=== PATIENT | male | born 1930 ===

== ENCOUNTER 2020-01-03 14:14 | Inpatient (IN) | payer MEDICARE ==
[~2020-01-03] VITALS: Ht 172.7 cm; Wt 56.1 kg
[2020-01-03 14:58] LABS: BASOPHILS ABSOLUTE AUTO 0.02 K/mm3 (0.00-0.23); BASOPHILS PERCENT AUTO 0 % (0-2); EOSINOPHILS ABSOLUTE AUTO 0.01 K/mm3 (0.00-0.68); EOSINOPHILS PERCENT AUTO 0 % (0-6); Hematocrit 38.5 % (37.0-53.0); Hemoglobin 12.5 g/dL (13.5-17.5); IMMATURE GRAN ABSOLUTE AUTO 0.04 K/mm3 (0.00-0.10); IMMATURE GRAN PERCENT AUTO 1 % (0-1); LYMPHOCYTES ABSOLUTE AUTO 0.61 K/mm3 (0.84-5.20); LYMPHOCYTES PERCENT AUTO 8 % (21-46); MONOCYTES PERCENT AUTO 5 % (4-13); Mean Corpuscular HGB 27.2 pg (26.0-34.0); Mean Corpuscular HGB Conc 32.5 g/dL (31.5-36.5); Mean Corpuscular Volume 84 fL (80-100); Mean Platelet Volume 8.5 fL (9.1-12.4); NEUTROPHILS ABSOLUTE AUTO 6.81 K/mm3 (1.96-9.15); NEUTROPHILS PERCENT AUTO 86 % (41-73); Platelet Count 315 K/mm3 (150-400); RDW Coefficient Variation 13.5 % (11.7-14.2); RDW Standard Deviation 41.1 fL (35.1-46.3); White Blood Cell Count 7.89 K/mm3 (4.00-11.30)
[2020-01-03 15:27] LABS: Alanine Aminotransfer (ALT/SGP 20 U/L (12-78); Albumin, Blood 3.4 g/dL (3.4-5.0); Albumin/Globulin Ratio 0.8 (0.8-1.8); Alk Phos 108 U/L (50-136); Anion Gap 7 mmol/L (6-16); Aspartate Aminotrans (AST/SGOT 38 U/L (12-37); Bilirubin, Total 0.5 mg/dL (0.1-1.0); Blood Urea Nitrogen 16 mg/dL (8-24); Bun/Creatinine Ratio 28.4 (12.0-20.0); CO2, Blood 32 mmol/L (21-32); Calcium, Blood 8.4 mg/dL (8.5-10.1); Chloride, Blood 83 mmol/L (98-108); Creatinine, Blood 0.56 mg/dL (0.60-1.20); Glomerular Filtration Rate >60 (60-); Glucose, Blood 154 mg/dL (70-99); Potassium, Blood 3.7 mmol/L (3.5-5.5); Sodium, Blood 122 mmol/L (136-145); Total Protein, Blood 7.4 g/dL (6.4-8.2); Troponin I <0.015 ng/mL (0.000-0.040)
[2020-01-03] MEDS ORDERED: FINA5 PO (16:49)
[2020-01-03] MEDS ORDERED: LOSARTAN POTAS100 M1 PO (16:49)
[2020-01-03] MEDS ORDERED: OMEP20ER PO (16:49)
[2020-01-03] MEDS ORDERED: B-121000 MC2 PO (16:50)
[2020-01-03] MEDS ORDERED: Vitamin D2000 UNIT PO (16:51)
[2020-01-03] MEDS ORDERED: FAMO20 PO (16:51)
--- NOTE | 2020-01-03 19:51 | NUR ---
ADMISSION: PATIENT IS RECIEVED FROM ER VIA STRETCHER. NO C/O PAIN OR DISCOMFORT, WOULD LIKE SOME FOOD. VS ARE STABEL. PATIENT IS ORIENTED TO ROOM AND CALL NEWBY. ORIENTED TO ROOM AND CALL NEWBY. PATIENT IS A&0X4 BUT BED ALARM IS ON FOR SAFETY DUE TO RECENT FALLS AT HOME.
--- NOTE | 2020-01-04 04:51 | NUR ---
SHIFT SUMMARY: PATIENT IS A&OX3, VERY IGIUGIG AND REPORTS BATTERIES ARE LOW ON HEARING AIDES. PATIENT DOES NOT USE CALL NEWBY FOR ASSISTANCE OOB, BED ALARM IS ON FOR SAFETY. PATIENT IS WEAK AND NEEDS ASSISTANCE OF 1 TO THE BSC. NO RESPIRAOTORY DISTRESS OR SOB OBSERVED, MAINTAINS SATS IN HIGH 90'S ON RA.
[2020-01-04 04:54] LABS: BASOPHILS ABSOLUTE AUTO 0.01 K/mm3 (0.00-0.23); BASOPHILS PERCENT AUTO 0 % (0-2); EOSINOPHILS ABSOLUTE AUTO 0.04 K/mm3 (0.00-0.68); EOSINOPHILS PERCENT AUTO 1 % (0-6); Hemoglobin 10.7 g/dL (13.5-17.5); IMMATURE GRAN ABSOLUTE AUTO 0.03 K/mm3 (0.00-0.10); IMMATURE GRAN PERCENT AUTO 1 % (0-1); LYMPHOCYTES ABSOLUTE AUTO 0.78 K/mm3 (0.84-5.20); LYMPHOCYTES PERCENT AUTO 17 % (21-46); MONOCYTES ABSOLUTE AUTO 0.42 K/mm3 (0.16-1.47); MONOCYTES PERCENT AUTO 9 % (4-13); Mean Corpuscular HGB 26.9 pg (26.0-34.0); Mean Corpuscular HGB Conc 32.4 g/dL (31.5-36.5); Mean Corpuscular Volume 83 fL (80-100); Mean Platelet Volume 8.5 fL (9.1-12.4); NEUTROPHILS ABSOLUTE AUTO 3.36 K/mm3 (1.96-9.15); NEUTROPHILS PERCENT AUTO 72 % (41-73); Platelet Count 259 K/mm3 (150-400); RDW Coefficient Variation 13.2 % (11.7-14.2); RDW Standard Deviation 39.8 fL (35.1-46.3); Red Blood Cell Count 3.98 M/mm3 (4.30-5.90); White Blood Cell Count 4.64 K/mm3 (4.00-11.30)
[2020-01-04 05:21] LABS: Alanine Aminotransfer (ALT/SGP 17 U/L (12-78); Albumin, Blood 2.8 g/dL (3.4-5.0); Albumin/Globulin Ratio 0.9 (0.8-1.8); Alk Phos 85 U/L (50-136); Anion Gap 6 mmol/L (6-16); Aspartate Aminotrans (AST/SGOT 29 U/L (12-37); Bilirubin, Total 0.5 mg/dL (0.1-1.0); Blood Urea Nitrogen 12 mg/dL (8-24); Bun/Creatinine Ratio 22.4 (12.0-20.0); CO2, Blood 30 mmol/L (21-32); Calcium, Blood 8.1 mg/dL (8.5-10.1); Chloride, Blood 89 mmol/L (98-108); Creatinine, Blood 0.54 mg/dL (0.60-1.20); Globulin, Blood 3.2 g/dL (2.2-4.0); Glomerular Filtration Rate >60 (60-); Glucose, Blood 89 mg/dL (70-99); Potassium, Blood 3.7 mmol/L (3.5-5.5); Sodium, Blood 125 mmol/L (136-145)
--- NOTE | 2020-01-04 07:00 | NUR ---
ASSUMED CARE: PT RESTING QUIETLY IN BED AT THIS TIME. NO ACUTE NEEDS OR CONCERNS AT THIS TIME.
--- NOTE | 2020-01-04 17:48 | NUR ---
SHIFT SUMMARY: PT RECIEVING PO CONTRAST FOR ABDOMINAL CT. 1 ASSIST FOR TRANSPORT, FREQUENT URINATION. WORKED WITH PT/OT WITH RECOMMENDATION FOR HOME WITH HOME HEALTH. FAMILY HAS BEEN GIVEN UPDATE BY HOSPITAL STAFF TODAY. DENIES NEEDS OR CONCERNS AT THIS TIME.
--- NOTE | 2020-01-04 18:05 | NUR ---
PT TAKEN TO CT SCAN VIA WHEEL CHAIR BY HOSPITAL STAFF
--- NOTE | 2020-01-04 23:27 | NUR ---
CARDIAC/ : BP IS ELEVATED 180/112 AND PATIENT IS CONTINUOSLY GETTING UP TO URINATE SMALL AMOUNTS. NETWORK SUPPORT ANALYST [employer] SPECIALIST WAS NOTIFIED AND ORDERS FOR HYDRALAZINE 10MG IV Q4 HOURS PRN FOR SBP ABOVE 170 AND BL[address] SCAN AND [address] FERREIRA IF RETAINING OVER 300ML. BLADDER SCAN SHOWS OVER 600ML. PATIENT IS ABLE TO VOID 300 WITH OVER 300ML RETAINED. FERREIRA IS PLACED, PATIENT TOLERATED PROCEEDURE WELL. HYDRALAZINE WAS NOT GIVEN DUE TO BP IS NOW 150/87. WILL CONTINUE TO MONITOR URINE OUTPUT AND BP.
[2020-01-04 23:43] LABS: Source, Urine Catheter
[2020-01-04 23:46] LABS: Bilirubin, Urine Neg (Neg); Blood, Urine Neg (Neg); Glucose Qualitative, Urine Neg (Neg); Ketones, Urine Neg (Neg); Leukocyte Esterase, Urine Neg (Neg); Nitrite, Urine Neg (Neg); Protein, Urine Neg (Neg); Specific Gravity, Urine 1.005 (1.003-1.022); Urobilinogen, Urine NORM (Normal)
[2020-01-04 23:58] LABS: Appearance, Urine Clear (Clear); Color, Urine Yellow (P-Yellow)
--- NOTE | 2020-01-05 04:37 | NUR ---
SHIFT SUMMARY: PATIENT IS A&OX4, REPORTED BACK PAIN 7-8 AND REQUESTED TYLENOL WHICH WAS GIVEN WITH GOOD EFFECT. PATIENT HAS SLEPT WELL SINCE FERREIRA WAS PLACED, 1200 MLS OF CLEAR YELLOW URINE HAS DRAINED. BP IS NOW 139/79, HYPERTENSION HAS RESOLVED WITH RESOLUTION OF RETENTION. BED ALRM IS ON FOR SAFETY.
[2020-01-05 08:25] LABS: Hematocrit 36.3 % (37.0-53.0); Hemoglobin 11.8 g/dL (13.5-17.5)
[2020-01-05 08:39] LABS: Anion Gap 5 mmol/L (6-16); Blood Urea Nitrogen 8 mg/dL (8-24); Bun/Creatinine Ratio 14.7 (12.0-20.0); CO2, Blood 32 mmol/L (21-32); Calcium, Blood 8.1 mg/dL (8.5-10.1); Chloride, Blood 88 mmol/L (98-108); Creatinine, Blood 0.55 mg/dL (0.60-1.20); Glomerular Filtration Rate >60 (60-); Glucose, Blood 87 mg/dL (70-99); Potassium, Blood 3.8 mmol/L (3.5-5.5); Sodium, Blood 125 mmol/L (136-145)
--- NOTE | 2020-01-05 17:31 | NUR ---
SUMMARY PT IS A/O X4, PLEASANT AFFECT. UP 1 ASSIST w FWW. HE AMBULATED IN [place] TODAY w OCCTHER. HE STATE NO PAIN/DISCOMFORT T/O DAY. THIS AM TOLERATED REG DIET. AFTER BF DR YOANDY IBRAHIM, STATE SPOKE w PT'S DAUGHTER R/T RESULTS OF CT, + FOR CECUM MASS, STATE WILL PROCEED w BOWEL PREP FOR COLONOSCOPY IN AM APPROX 1000, STATE TO GIVE BOWEL PREP SLOWLY T/O DAY. PT HAS TOLERATED PREP HOWEVER SLOWLY. STOOLS ARE BEGINNING TO CLEAR HOWEVER CONTINUE BROWN, WATERY @ THIS TIME. HE WILL BE NPO @ 2330. IV NS CONTINUES @ 75 ML/HR. VSS.
--- NOTE | 2020-01-06 03:18 | NUR ---
SHIFT SUMMARY: 89 Y/O MALE RESTED COMFORTABLY ALL SHIFT; NO BM'S NOTED; NPO SINCE MIDNIGHT FOR COLONOSCOPY TODAY; PT ALERT AND ORIENTED X 4; DENIES PAIN OR NAUSEA; BED ALARM APPLIED; BED LOW POSITION WITH CALL LIGHT AT SIDE.
[2020-01-06 11:18] LABS: Hematocrit 36.9 % (37.0-53.0); Mean Corpuscular HGB 27.3 pg (26.0-34.0); Mean Corpuscular HGB Conc 32.5 g/dL (31.5-36.5); Mean Corpuscular Volume 84 fL (80-100); Mean Platelet Volume 8.8 fL (9.1-12.4); Platelet Count 254 K/mm3 (150-400); RDW Coefficient Variation 13.6 % (11.7-14.2); RDW Standard Deviation 41.9 fL (35.1-46.3); White Blood Cell Count 5.59 K/mm3 (4.00-11.30)
[2020-01-06 11:47] LABS: Anion Gap 9 mmol/L (6-16); Blood Urea Nitrogen 8 mg/dL (8-24); Bun/Creatinine Ratio 19.1 (12.0-20.0); CO2, Blood 30 mmol/L (21-32); Calcium, Blood 7.8 mg/dL (8.5-10.1); Chloride, Blood 88 mmol/L (98-108); Creatinine, Blood 0.42 mg/dL (0.60-1.20); Glomerular Filtration Rate >60 (60-); Glucose, Blood 82 mg/dL (70-99); Potassium, Blood 3.6 mmol/L (3.5-5.5); Sodium, Blood 127 mmol/L (136-145)
--- NOTE | 2020-01-06 13:05 | NUR ---
01/06/20 1305 Amarilis Lara History, Chart, Medications and Allergies reviewed before start of procedure. PATIENT DETERMINED TO BE ASA APPROPRIATE FOR PROPOFOL SEDATION PRIOR TO START OF PROCEDURE BY DR. PITT. Patient confirms NPO status and agrees with scheduled surgery. O2 VIA N/C INTACT THROUGHOUT SEDATION/PROCEDURE. MONITOR INTACT WITH CONTINUOUS PULSE OXIMETRY AND INTERMITTENT BP.
--- NOTE | 2020-01-06 15:41 | NUR ---
DISCHARGE DR DIMAS EGD/COLONOSCOPY, STATE CALLED PT DAUGHTER w RESULTS, WILL F/U OUTPT, FROM GI STANDPOINT PT MAY BE D/C'D HOME TODAY. DR MATUTE NOTIFIED, PROVIDE D/C ORDERS. SHUTTLE FITTING SUPERVISOR NOTIFY FAMILY. DR MATUTE STATE TO SEND PT HOME w FERREIRA CATH D/T RETENTION & F/U w UROLOGIST SCHEDULED, HOME HEALTH FOR SUPPORT HOWEVER PT & FAMILY UNCOMFORTABLE w CATHETER CARE/MAINTENANCE, REQUEST CATHETER REMOVED. DR MATUTE NOTIFIED, ORDER D/C FERREIRA. IV SITE D/C INTACT. PT DAUGHTER WILL COME IN FOR TRANSPORT HOME. PT IS A/O X4 AFTER SCOPE TODAY. PLEASANT AFFECT. VSS.
--- NOTE | 2020-01-06 17:38 | NUR ---
DISCHARGE INSTRUCT REVIEWED w PT'S DAUGHTER RONALD VIA PHONE. EMPHASIS ON F/U w DR PITT (GI) & UROLOGIST IN [place]. INSTRUCTED PT/FAMILY TO NOTIFY HOMEHEALTH RN OR GO TO ER IF HE HAS PROBLEMS w URINARY RETENTION. PT HAD SHOWER THIS AM, CAR INSTALLATIONS SUPERVISOR ASSIST HIM TO DRESS/GATHER BELONGINGS. W/C ESCORT FROM HOSP PROVIDED. PT IS PLEASANT/APPRECIATIVE, STATE SATISFACTION w CARE.
--- NOTE | 2020-01-06 17:47 | NUR ---
will follow up with patients daughter to assist with advance care plan. will update HH that pt does not have a polst
--- NOTE | 2020-01-06 17:48 | NUR ---
will update doctor keyes from [facility] pt high risk for readmission
== END 2020-01-06 17:35 | disposition home health service (06) | DRG 641 ==
LOC: ER 14:14 → MEDS 14:15 → ER 19:25 → MEDS 19:37
PROVIDERS: Internal Medicine; Internal Medicine Gastroenterology; Nurse Practitioner Acute Care; Physician Assistant; ADMIT Internal Medicine
PROC: 0DB68ZX Excision of Stomach, Via Natural or Artificial Opening Endoscopic, Diagnostic (ICD-10-PCS; principal; 2020-01-06 09:45)
PROC: 0DBH8ZX Excision of Cecum, Via Natural or Artificial Opening Endoscopic, Diagnostic (ICD-10-PCS; 2020-01-06 09:45)
DX: E87.1 Hypo-osmolality and hyponatremia (principal); E46 Unspecified protein-calorie malnutrition; Z68.1 Body mass index [BMI] 19.9 or less, adult; K44.9 Diaphragmatic hernia without obstruction or gangrene; K21.9 Gastro-esophageal reflux disease without esophagitis; I10 Essential (primary) hypertension; E53.8 Deficiency of other specified B group vitamins; H91.90 Unspecified hearing loss, unspecified ear; D64.9 Anemia, unspecified; K22.70 Barrett's esophagus without dysplasia; K22.8 Other specified diseases of esophagus; R33.9 Retention of urine, unspecified; K25.9 Gastric ulcer, unspecified as acute or chronic, without hemorrhage or perforation; K63.89 Other specified diseases of intestine; N40.1 Benign prostatic hyperplasia with lower urinary tract symptoms; R39.12 Poor urinary stream; M40.209 Unspecified kyphosis, site unspecified; Z66 Do not resuscitate; Z87.891 Personal history of nicotine dependence; Z79.899 Other long term (current) drug therapy; Z88.0 Allergy status to penicillin
CPT/HCPCS: 36415; 51702; 71045; 71260; 74177; 80048; 80053; 81003; 84295; 84443; 84484; 85014; 85018; 85025; 85027; 88305; 88342; 93005; 93010; 96361; 97110; 97116; 97162; 97165; 97530; 97535; 99285-25; A9270; A9270-GY; C1726; G0103; G0378; J0360; J2405; J2704; J7030; J7040; J7120; Q9967

== ENCOUNTER 2020-02-03 12:17 | Inpatient (IN) | payer MEDICARE, OTHER ==
[~2020-02-03] VITALS: Wt 56.4 kg
[~2020-02-03 12:17] MED LIST: B-121000 MC2 PO; FAMO20 PO; FINA5 PO; LOSARTAN POTAS100 M1 PO; OMEP20ER PO; Vitamin D2000 UNIT PO
[2020-02-07 13:32] LABS: BASOPHILS ABSOLUTE AUTO 0.02 K/mm3 (0.00-0.23); BASOPHILS PERCENT AUTO 0 % (0-2); EOSINOPHILS ABSOLUTE AUTO 0.03 K/mm3 (0.00-0.68); EOSINOPHILS PERCENT AUTO 1 % (0-6); Hematocrit 34.9 % (37.0-53.0); Hemoglobin 11.5 g/dL (13.5-17.5); IMMATURE GRAN ABSOLUTE AUTO 0.02 K/mm3 (0.00-0.10); IMMATURE GRAN PERCENT AUTO 0 % (0-1); LYMPHOCYTES ABSOLUTE AUTO 0.62 K/mm3 (0.84-5.20); LYMPHOCYTES PERCENT AUTO 11 % (21-46); MONOCYTES PERCENT AUTO 7 % (4-13); Mean Corpuscular HGB 28.3 pg (26.0-34.0); Mean Corpuscular Volume 86 fL (80-100); Mean Platelet Volume 8.6 fL (9.1-12.4); NEUTROPHILS ABSOLUTE AUTO 4.34 K/mm3 (1.96-9.15); NEUTROPHILS PERCENT AUTO 80 % (41-73); Platelet Count 253 K/mm3 (150-400); RDW Coefficient Variation 14.6 % (11.7-14.2); RDW Standard Deviation 46.3 fL (35.1-46.3); Red Blood Cell Count 4.06 M/mm3 (4.30-5.90); White Blood Cell Count 5.43 K/mm3 (4.00-11.30)
[2020-02-07 13:54] LABS: Alanine Aminotransfer (ALT/SGP 22 U/L (12-78); Albumin, Blood 3.3 g/dL (3.4-5.0); Albumin/Globulin Ratio 0.9 (0.8-1.8); Alk Phos 103 U/L (50-136); Anion Gap 5 mmol/L (6-16); Aspartate Aminotrans (AST/SGOT 36 U/L (12-37); Bilirubin, Total 0.7 mg/dL (0.1-1.0); Blood Urea Nitrogen 15 mg/dL (8-24); Bun/Creatinine Ratio 33.8 (12.0-20.0); CO2, Blood 31 mmol/L (21-32); Calcium, Blood 8.2 mg/dL (8.5-10.1); Chloride, Blood 84 mmol/L (98-108); Creatinine, Blood 0.44 mg/dL (0.60-1.20); Globulin, Blood 3.7 g/dL (2.2-4.0); Glomerular Filtration Rate >60 (60-); Glucose, Blood 92 mg/dL (70-99); Potassium, Blood 4.3 mmol/L (3.5-5.5); Sodium, Blood 120 mmol/L (136-145)
[2020-02-07] MEDS ORDERED: FAMO20 PO (14:06)
--- NOTE | 2020-02-07 16:40 | NUR ---
SHIFT SUMMARY DIRECT ADMIT THIS SHIFT PRE-OP FOR A RIGHT HEMICOLECTOMY SCHEDULED FOR TOMORROW WITH DR. MARY. PT IS ALERT AND ORIENTED, BUT HARD OF HEARING. PT CURRENTLY DRINKING GOLYTELY BOWEL PREP PER ORDERS AND WILL BE NPO AT MIDNIGHT. PT ABLE TO AMBULATE WITH FWW 1 MIN SBA. ATTENDS IN PLACE AND CHANGING PRN. PT WITH HX OF URINARY FREQUENCY/URGENCY/SLOW STREAM. ASSISTING WITH URINAL PLACEMENT WHEN NEEDING TO VOID. THIS RN WITH UNSUCCESSFUL IV ACCESS. SENIOR SUSTAINABILITY CONSULTANT TO ATTEMPT VASCULAR ACCESS. CALL LIGHT WITHIN REACH.
--- NOTE | 2020-02-08 04:21 | NUR ---
SHIFT SUMMARY PT IS A/O X4, VERY HARD OF HEARING. PT USES FWW AND SBA-1X ASSIST TO BATHROOM; ATTENS ALSO IN PLACE FOR URGENCY AND HAVE BEEN CHANGED PRN. GOLYTELY INTAKE ENCOURAGED BEFORE MIDNIGHT; PT HAS BEEN NPO SINCE MIDNIGHT. IV FLUIDS HAVE BEEN RUNNING THROUGHOUT THE SHIFT PER ORDER. PT HAS HAD NO C/O PAIN DURING THE NIGHT. HAS BEEN HAVING BMS AND IS VOIDING. PLAN TO HAVE SURGERY TODAY. NO ACUTE CHANGES; VSS. ASSISTED WITH ADL'S PRN.
--- NOTE | 2020-02-08 06:39 | NUR ---
BROUGHT FROM ROOM 224 WIHT 2 RNS. ADMISSION TO UNIT STARTED
--- NOTE | 2020-02-08 09:49 | NUR ---
PT IN OR
--- NOTE | 2020-02-08 12:44 | NUR ---
POST OP ARRIVED FROM PACU VIA BED, S/P HEMICOLECTOMY, PT IS DROWSY BUT ANSWERES QUESTIONS APPROPRIATELY, DENIES ANY NAUSEA OR ANY NEED FOR PAIN MEDS AT THIS TIME, CONT. TO MONITOR VS AND ANY CHANGES.
[2020-02-08 13:22] LABS: Anion Gap 7 mmol/L (6-16); Blood Urea Nitrogen 11 mg/dL (8-24); Bun/Creatinine Ratio 26.6 (12.0-20.0); CO2, Blood 29 mmol/L (21-32); Calcium, Blood 7.8 mg/dL (8.5-10.1); Chloride, Blood 86 mmol/L (98-108); Creatinine, Blood 0.41 mg/dL (0.60-1.20); Glomerular Filtration Rate >60 (60-); Glucose, Blood 156 mg/dL (70-99); Potassium, Blood 3.5 mmol/L (3.5-5.5); Sodium, Blood 122 mmol/L (136-145)
--- NOTE | 2020-02-08 18:28 | NUR ---
SUMMARY VSS, DSG C/D/I, PT WOKE UP AND SPOKE TO ON THE PHONE, APPEARS TO BE COMFORTABLE, DENIES ANY NAUSEA, NO ACUTE CHANGES THIS SHIFT.
[2020-02-09 04:53] LABS: BASOPHILS ABSOLUTE AUTO 0.01 K/mm3 (0.00-0.23); BASOPHILS PERCENT AUTO 0 % (0-2); EOSINOPHILS ABSOLUTE AUTO 0.01 K/mm3 (0.00-0.68); EOSINOPHILS PERCENT AUTO 0 % (0-6); Hematocrit 32.6 % (37.0-53.0); Hemoglobin 10.6 g/dL (13.5-17.5); IMMATURE GRAN ABSOLUTE AUTO 0.06 K/mm3 (0.00-0.10); IMMATURE GRAN PERCENT AUTO 1 % (0-1); LYMPHOCYTES PERCENT AUTO 5 % (21-46); MONOCYTES ABSOLUTE AUTO 0.79 K/mm3 (0.16-1.47); MONOCYTES PERCENT AUTO 8 % (4-13); Mean Corpuscular HGB 27.7 pg (26.0-34.0); Mean Corpuscular HGB Conc 32.5 g/dL (31.5-36.5); Mean Corpuscular Volume 85 fL (80-100); NEUTROPHILS ABSOLUTE AUTO 8.66 K/mm3 (1.96-9.15); NEUTROPHILS PERCENT AUTO 86 % (41-73); Platelet Count 230 K/mm3 (150-400); RDW Coefficient Variation 14.7 % (11.7-14.2); RDW Standard Deviation 45.8 fL (35.1-46.3); Red Blood Cell Count 3.83 M/mm3 (4.30-5.90); White Blood Cell Count 10.03 K/mm3 (4.00-11.30)
[2020-02-09 05:08] LABS: Anion Gap 6 mmol/L (6-16); Blood Urea Nitrogen 13 mg/dL (8-24); Bun/Creatinine Ratio 32.3 (12.0-20.0); CO2, Blood 29 mmol/L (21-32); Calcium, Blood 7.5 mg/dL (8.5-10.1); Chloride, Blood 88 mmol/L (98-108); Glomerular Filtration Rate >60 (60-); Glucose, Blood 113 mg/dL (70-99); Potassium, Blood 4.2 mmol/L (3.5-5.5); Sodium, Blood 123 mmol/L (136-145)
--- NOTE | 2020-02-09 06:00 | NUR ---
POD 1 S/P RIGHT HEMICOLECTOMY DUE TO MASS ON R ABD (CECUM). PT WEAN OF 02, HE IS ON RA, TOLERATING SPO2 OF 92-97. HAS A ONESIMO MID ABD, NO LEAK SPEC OF BLOOD. NPO W/ ICE CHIPS AND SIP W/ MEDS. HAS DENTURES. VERY HARD OF HEARING, WEARING HEARING AIDS. PAIN MANAGE W/ NORCO. CURRENTLY ON FLAGYL, SEE EMAR. STILL ON FERREIRA CATH, MAY NEED TO DISCONTINUE TODAY. REPOSITION TWICE.
--- NOTE | 2020-02-09 06:52 | NUR ---
CATH DC'C W/ 620 URINE OUTPUT.
--- NOTE | 2020-02-09 07:45 | NUR ---
cont bioxx alarming, spo2 85% RA, encouraged tcdb, put pt on 1l NC with spo2 climbing to 95% and stable.
--- NOTE | 2020-02-09 08:03 | NUR ---
POD 1 S/P MICHAEL COLECTOMY. PT VSS T/O NIGHT. RESP SHALLOW, SATS >90% ON RA, CONT OX IN PLACE. ONESIMO DRESSING INTACT W/GOOD SEAL/SX, SCANT SHADOWING PRESENT. PAIN MGD W/1 NORCO W/REP RELIEF. PT NPO X ICE CHIPS, NO C/O N/V. FERREIRA CATH D/C THIS AM, AWAITING FIRST VOID. REPORT GIVEN TO DAY RN.
--- NOTE | 2020-02-09 15:09 | NUR ---
02/09/20 1509 Desiree Abkar VERIFICATIONS, AUDITS.
--- NOTE | 2020-02-09 16:53 | NUR ---
shift summary: vss, no acute changes. pt on cont bioxx with ear probe r/t cold hands and poor readings, spo2 >95% on 1l NC. pt worked with physical therapy this shift, up in chair for >2 hrs. pt tolerated sips of clear liquids, no n/v. pt reports pain controlled per nov, rates pain at 4/10 following admin per nov. pt a/o x 4, pleasant/cooperative. BT hypoactive. ONESIMO dressing compressed, c/d/i. PT JAMUL with bilateral hearing aids in place.
--- NOTE | 2020-02-10 03:41 | NUR ---
PT C/O URGENCY TO URINATE AND FULL BLADDER. BLADDER SCAN OBTAIN W/ 547 ML. CATH PLACED AND WILL MEASURE URINE OUTPUT.
--- NOTE | 2020-02-10 06:29 | NUR ---
POD 2 FOR HEMICOLECTOMY. EXPERIENCING HIGH BP THIS MORNING 185/99 TREATED W/ HYRDRALAZINE DENIES CP, SOB. HE IS ALSO C/O URGENCY TO URINATE W/ VERY MINIMAL VOID IN URINAL. BLADDER SCAN 547 MLS, STRAIGHT CATH, OBTAINED 500 ML URINE. PT UNABLE TO SLEEP VERY MUCH. DUE TO PAIN, FULL BLADDER DISCOMFORT AND ELEV BP. MEPIFLEX PLACED ON HIS BACK. 1L NC WITH STABLE SPO2 OF 95-100%.
--- NOTE | 2020-02-10 08:00 | NUR ---
POD 2 S/P COLECTOMY. PT BP ELEVATED DURING NIGHT, HYDRALAZINE GIVEN PER EMAR W/NOTED EFFECT. 1LO2 IN PLACE TO KEEP SATS >90%. NO NEW DRNG NOTED TO ONESIMO DRESSING, SEAL AND SX MAINTAINED. PAIN MGD PER EMAR W, REP RELIEF. PT VOIDING SMALL AMTS URINE, I/O CATH DONE X1. BT HYPO, PT HAD NO N/V, REP NO FLATUS YET. PT USING CALL LIGHT FOR ASSISTANCE, BEDSIDE REPORT GIVEN TO DAY RN.
--- NOTE | 2020-02-10 19:46 | NUR ---
PT HAS BEEN STABLE THIS SHIFT. PT WORKED WELL WITH THERAPY TO MOBILIZE OOB. PT 1 ASSIST. PLAN FOR REHAB AT DISCHARGE. NO CONFUSION THIS SHIFT. POOR APPETITE, NO FLATUS YET. NO NAUSEA. CONT IV FLUIDS ORDERED. ONESIMO DRESSING CDI. MEPILEX TO BUTTOCKS PREVENTITIVELY. PT HAS HAD NO COMPLAINTS OF PAIN. WEANED FROM O2 THIS SHIFT. INCONTINENT VOIDS. PT USES CALL LIGHT APPROPRIATELY.
--- NOTE | 2020-02-11 04:42 | NUR ---
SHIFT SUMMARY POD3 HEMICOLECTOMY. MIDLINE ONESIMO DRESSING IS COMPRESSED, C/D/I WITH OLD SCANT BLOOD WITH NO DRAINAGE. PATIENT APPEARS TO BE THIN, FRAIL, WITH GENERALIZED WEAKNESS AND DECONDITIONING. TOLERATING PO FLUIDS. PAIN WELL CONTROLLED WITH REPOSITIONING AND MEDICATED PER EMAR. NAUSEA AFTER NORCO, MEDICATED WITH PRN ZOFRAN. RESTED IN BED THROUGHOUT SHIFT. UP IN CHAIR FOR COMFORT MEASURES. USES WALKER WITH GAIT BELT. 1 PERSON ASSIST. UNABLE TO VOID ON OWN WITH RETENTION AT BEGINING OF THE SHIFT. BLADDER SCAN AND STRAIGHT CATH PERFORMED WITH 750CC OUTPUT. PATIENT IS INCONTENINT OF URINE AND STOOLS AT THIS TIME. PATIENT WAKES UP WITH CONFUSION BUT IS EASILY REDIRECTED. USES CALL LIGHT APPROPRIATELY. CALL LIGHT IN REACH.
--- NOTE | 2020-02-11 07:06 | NUR ---
WORKED SIDE BY SIDE WITH STUDENT NURSE YAHIR JOHNS. I AGREE WITH THE ASSESSMENTS AND THE WRITTEN NOTES FOR THIS SHIFT FOR THIS PATIENT.
--- NOTE | 2020-02-11 17:09 | NUR ---
SHIFT SUMMARY PT POD 3 COLECTOMY. PICCO DRESSING C/D/I FOAM COMPRESSED NO NEW DRAINAGE. URINARY RETENTION, STRAIGHT CATH T/O SHIFT. ORDER OBTAINED FROM DR RICE TO PLACE FERREIRA CATHETER. PT HAS HAD 2 LARGE INCONTINENT LIQUID STOOLS THIS SHIFT. ADVANCED DIET TO FULL LIQUID FOR DINNER.
[2020-02-11 18:57] LABS: Source, Urine Catheter
[2020-02-11 19:00] LABS: Bilirubin, Urine Neg (Neg); Blood, Urine 3+ (Neg); Glucose Qualitative, Urine Neg (Neg); Ketones, Urine Neg (Neg); Leukocyte Esterase, Urine Neg (Neg); Nitrite, Urine Neg (Neg); Protein, Urine 2+ (Neg); Specific Gravity, Urine 1.015 (1.003-1.022); Urobilinogen, Urine 1+ (Normal); pH, Urine 6.5 (5.0-8.0)
[2020-02-11 19:10] LABS: Appearance, Urine Clear (Clear); Color, Urine Yellow (P-Yellow)
[2020-02-11 19:12] LABS: White Blood Cells, Urine Rare /hpf (0-5)
[2020-02-11 19:13] LABS: Bacteria Rare /hpf; Squamous Epithelial Cells Not Seen /hpf (Few)
--- NOTE | 2020-02-12 05:48 | NUR ---
PATIENT HAS BEEN ABLE TO SLEEP, REPOSTITIONED WITH LITTLE ASSISTANCE. HE HAS NOT HAS ANY LOOSE STOOLS. FERREIRA CATH DRAINING CLEAR YELLOW. HE SLEPT WELL, UPON WAKING HE BELIEVES THAT HE IS AT HOME AND DOES NOT WANT TO WAKE HIS . HE REORIENTS EASILY. ABDOMEN IS SOFT WITH THE ONESIMO DRESSING COMPRESSED, WITHOUT ANY NEW DRAINAGE. nO ACUTE CHANGES THIS SHIFT. CALL LIGHT USED AND WITHIN REACH.
--- NOTE | 2020-02-12 10:52 | NUR ---
DR RICE HERE TO SEE PT. PT WENT FOR SHORT WALK IN HALLWAY WITH GB, WALKER AND ASSIST. REPORTS TO HAVE PT COUGH/DEEP BREATHE. REPORTS TO S.L. PT UP TO CHAIR WITH TAB ALARM IN PLACE.
--- NOTE | 2020-02-12 18:54 | NUR ---
SHIFT SUMMARY PT BEEN EATING AND DRINKING BETTER THIS AFTERNOON. PT BEEN UP TO CHAIR MOST OF DAY WITH MULT PILLOWS. PT BEEN ASSISTED WITH ADL'S PRN. PT NOT COUGHING THIS AFTERNOON/EVENING. PT USING I/S WHEN ENCOURAGED. TAB/BED ALARM IN PLACE AND HAS BEEN T/O DAY. PT AMBULATED SHORT DISTANCE IN HALLWAY TODAY WITH GB, WALKER, ASSIST.
--- NOTE | 2020-02-13 05:45 | NUR ---
Care performed by nursing teacher and nurse. Charting and notes all reviewed and approved by this RN.
--- NOTE | 2020-02-13 13:28 | NUR ---
DISCHARGE REPORT CALLED TO MARQUIS AT [facility]. HE WAS NOTIFIED THAT PT'S FERREIRA CATHETER WAS REMOVED THIS MORINING AND PT HAD NOT VOIDED SINCE IT WAS REMOVED. HE WAS ALSO NOTIFIED THAT THE PT HAS A HISTORY OF URINARY RETENTION. CURRENT BLADDER SCAN VOLUME OF 217ML AND PT DENIES THE NEED TO VOID. VERIFIED WITH IT DIRECTOR AT [facility] THAT THIS PT COULD DISCHARGE WITHOUT A VOID, SHE VERBALIZED OK TO SEND PT TO THEM AND THAT THEY HAD THE CAPABILITY TO MANAGE URINARY RETENTION IF IT BECAME AND ISSUE. REPORT GIVEN TO MARQUIS. PT WAS ASSISTED INTO WHEELCHAIR FOR TRANSPORT. IV REMOVED BY NEISHA BLOOM
--- NOTE | 2020-02-13 13:34 | NUR ---
SHIFT ASSESSMENT BY NEISHA ROMERO WAS REVIEWED, THIS RN AGREES WITH THAT DOCUMENTATION.
== END 2020-02-13 13:32 | DRG 329 ==
LOC: SURS 02-07 12:25 → PRE IP 02-08 07:30 → SURS 02-13 13:32
PROVIDERS: Surgery; ADMIT Surgery
PROC: 0DTF0ZZ Resection of Right Large Intestine, Open Approach (ICD-10-PCS; principal; 2020-02-08 07:30)
DX: D12.6 Benign neoplasm of colon, unspecified (principal); E43 Unspecified severe protein-calorie malnutrition; K50.90 Crohn's disease, unspecified, without complications; I10 Essential (primary) hypertension; Z88.0 Allergy status to penicillin
CPT/HCPCS: 36415; 80048; 80053; 81001; 85025; 86850; 86900; 86901; 88309; 94762; 97110; 97116; 97162; 97530; A9270-GY; J0360; J0690; J1100; J1650; J2370; J2405; J2704; J3010; J7120; U0002